=== PATIENT | female | born 1980 | race Caucasian/White ===

== ENCOUNTER → 2016-06-27 | Outpatient (CLI) | payer BC ==
[2016-06-27 20:28] LABS: THYROID STIMULATING HORMONE 2.19 uIU/mL (0.47-4.68)
[2016-06-29 11:06] LABS: LUTEINIZING HORMONE 1.2 mIU/mL (.); PROGESTERONE <0.1 ng/mL (.)
== END ==
LOC: LAB 14:32
PROVIDERS: ATTEND Nurse Practitioner
DX: N95.1 Menopausal and female climacteric states (principal)
CPT/HCPCS: 36415; 82672; 83001; 83002; 84144; 84439; 84443

== ENCOUNTER → 2017-05-31 | Outpatient (CLI) | payer BC ==
[2017-05-31 19:26] LABS: ABSOLUTE EOSINOPHILS # (AUTO) 0.1 10^3/uL (0.0-0.6); ABSOLUTE LYMPHOCYTES (AUTO) 2.6 10^3/uL (0.5-4.7); ABSOLUTE MONOCYTES (AUTO) 0.9 10^3/uL (0.1-1.4); ABSOLUTE NEUT (AUTO) 4.3 10^3/uL (1.7-8.2); BASOPHILS % (AUTO) 0.3 % (0-2); EOSINOPHILS % (AUTO) 1.8 % (0-6); HEMATOCRIT 39.1 % (36.0-47.0); HEMOGLOBIN 13.2 g/dL (12.0-15.5); LYMPHOCYTES % (AUTO) 32.8 % (13-45); MEAN CORPUSCULAR HGB CONC 33.9 g/dL (32.0-36.0); MEAN CORPUSCULAR VOLUME 88 fl (80-97); MONOCYTES % (AUTO) 11.4 % (3-13); PLATELET COUNT 331 10^3/uL (150-450); RED BLOOD COUNT 4.42 10^6/uL (3.72-5.28); SEGMENTED NEUTROPHILS % (AUTO) 53.7 % (42-78); TOTAL CELLS COUNTED % (AUTO) 100 %; WHITE BLOOD COUNT 8.1 10^3/uL (4.0-10.5)
[2017-05-31 19:50] LABS: ALANINE AMINOTRANSFERASE 32 U/L (9-52); ALBUMIN 4.3 g/dL (3.5-5.0); ALKALINE PHOSPHATASE 47 U/L (38-126); ANION GAP 12 (5-19); ASPARTATE AMINO TRANSFERASE 20 U/L (14-36); BILIRUBIN,DIRECT 0.1 mg/dL (0.0-0.4); BILIRUBIN,TOTAL 0.4 mg/dL (0.2-1.3); BLOOD UREA NITROGEN 10 mg/dL (7-20); CARBON DIOXIDE 23 mmol/L (22-30); CHLORIDE 106 mmol/L (98-107); GLUCOSE 110 mg/dL (75-110); POTASSIUM 4.1 mmol/L (3.6-5.0); SODIUM 141.1 mmol/L (137-145); TOTAL PROTEIN 6.7 g/dL (6.3-8.2); TRIGLYCERIDES 168 mg/dL (<150)
[2017-05-31 20:01] LABS: DIRECT LDL 200 mg/dL (<100)
[2017-05-31 20:04] LABS: VLDL CHOLESTEROL 33.6 mg/dL (10-31)
== END ==
LOC: LAB 19:06
PROVIDERS: ATTEND Psychiatry & Neurology Psychiatry
DX: F41.9 Anxiety disorder, unspecified (principal); F43.10 Post-traumatic stress disorder, unspecified; Z79.899 Other long term (current) drug therapy
CPT/HCPCS: 36415; 80053; 80061; 84443; 85025

== ENCOUNTER 2017-09-27 07:10 | Emergency (ER) | payer BC ==
--- NOTE | 2017-09-27 07:40 | ER Document Report ---
HPI - HPI Patient complains to provider of: Right knee pain Onset: Other - 3 days Onset/Duration: Worse Quality of pain: Achy Pain Level: 4 Context: Patient states she has had right knee pain for the past 3 days. Patient was in the elevator and felt a sudden pop to the popliteal area. Patient complains of increased pain since then. Associated Symptoms: Other - Right knee pain Exacerbated by: Standing, Movement, Walking Relieved by: Denies Similar symptoms previously: Yes Recently seen / treated by doctor: No - ROS ROS below otherwise negative: Yes Systems Reviewed and Negative: Yes All other systems reviewed and negative - CONSTITUTIONAL Constitutional: DENIES: Fever, Chills - EENT EENT: DENIES: Sore Throat, Ear Pain, Eye problems - RESPIRATORY Respiratory: DENIES: Trouble Breathing, Coughing - GASTROINTESTINAL Gastrointestinal: DENIES: Abdominal Pain, Black / Bloody Stools - URINARY Urinary: DENIES: Dysuria, Urgency, Frequency - REPRODUCTIVE Reproductive: DENIES: : - MUSCULOSKELETAL Musculoskeletal: REPORTS: Extremity pain - right knee. DENIES: Swelling - DERM Skin Color: Normal Skin Problems: None Past Medical History - General Information source: Patient - Social History Smoking Status: Never Smoker Chew tobacco use (# tins/day): No Frequency of alcohol use: None Drug Abuse: None Occupation: Hospital Family History: Reviewed & Not Pertinent Patient has suicidal ideation: No Patient has homicidal ideation: No Pulmonary Medical History: Denies: Hx Asthma Neurological Medical History: Denies: Hx Migraine Renal/ Medical History: Denies: Hx Peritoneal Dialysis Psychiatric Medical History: Reports: Hx Anxiety, Hx Depression Past Surgical History: Reports: Hx Cholecystectomy - Immunizations Immunizations up to date: Yes Hx Diphtheria, Pertussis, Tetanus Vaccination: Yes Vertical Provider Document - CONSTITUTIONAL Agree With Documented VS: Yes Exam Limitations: No Limitations General Appearance: WD/WN, No Apparent Distress - INFECTION CONTROL TRAVEL OUTSIDE OF THE [place] IN LAST 30 DAYS: No - HEENT HEENT: Atraumatic, Normocephalic - NECK Neck: Normal Inspection - RESPIRATORY Respiratory: No Respiratory Distress - CARDIOVASCULAR Pulses: Normal: Posterior tibial, Dorsalis pedis - MUSCULOSKELETAL/EXTREMETIES Musculoskeletal/Extremeties: MAEW, Tender - Right knee tenderness to popliteal area and medial inferior compartment. No edema, no laxity with varus or valgus maneuvers. Patellar tendon is intact. Normal skin color and temperature overlying joint, No Edema. negative: Eccymosis - NEURO Level of Consciousness: Awake, Alert, Appropriate Motor/Sensory: No Motor Deficit - DERM Integumentary: Warm, Dry, No Rash Course - Vital Signs Vital signs: Temp Pulse Resp BP Pulse Ox 98.7 F 84 18 152/93 H 99 09/27/17 07:20 09/27/17 07:20 09/27/17 07:20 09/27/17 07:20 09/27/17 07:20 - Diagnostic Test Radiology reviewed: Pending, Image reviewed Procedures - Immobilization Right Knee Pre-Proc Neuro Vasc Exam: Normal Immobilizer type: Knee immobilizer Performed by: PCT Post-Proc Neuro Vasc Exam: Normal Alignment checked and good: Yes Discharge - Discharge Clinical Impression: Knee sprain Qualifiers: Encounter type: initial encounter Involved ligament of knee: unspecified ligament Laterality: right Qualified Code(s): S83.91XA - Sprain of unspecified site of right knee, initial encounter Condition: Stable Disposition: HOME, SELF-CARE Instructions: Use of Crutches ([facility]), Ice & Elevation ([facility]), Suspected Internal Knee Injury ([facility]), Knee Immobilizing Splint ([facility]), Sprained Knee ([facility]) Additional Instructions: Return immediately for any new or worsening symptoms Followup with your primary care provider, call tomorrow to make a followup appointment Follow-up with orthopedics for further evaluation, call Friday for an appointment Prescriptions: Naproxen [Naprosyn 250 Nmg Tablet] 1 tab PO BID #14 tablet Forms: Return to Work Referrals: PHILLY QUINTANILLA MD [NO LOCAL MD] - Follow up as needed [facility] ([facility]) [Provider Group] - 09/29/17
--- NOTE | 2017-09-27 08:11 | RADIOLOGY REPORT (SQ) ---
EXAM DESCRIPTION: KNEE RIGHT 4 VIEWS COMPLETED DATE/TIME: 09/27/2017 7:50 am REASON FOR STUDY: r knee pain, felt pop to popliteal area COMPARISON: None. NUMBER OF VIEWS: Four views. TECHNIQUE: AP, lateral, and both oblique radiographic images acquired of the right knee. LIMITATIONS: None. FINDINGS: MINERALIZATION: Normal. BONES: No acute fracture or dislocation. No worrisome bone lesions. JOINT: No effusion. SOFT TISSUES: No soft tissue swelling. No radio-opaque foreign body. OTHER: No other significant finding. IMPRESSION: NEGATIVE STUDY OF THE RIGHT KNEE. NO RADIOGRAPHIC EVIDENCE OF ACUTE INJURY. TECHNICAL DOCUMENTATION: JOB ID: [id number] [employer]- All Rights Reserved Reading location - IP/workstation name: [email or web address]
[2017-09-27 08:35] VITALS: BP 159/88
== END 2017-09-27 08:30 | disposition home or self-care (01) ==
LOC: ER 07:10
DX: S83.91XA Sprain of unspecified site of right knee, initial encounter (principal); M25.561 Pain in right knee; X58.XXXA Exposure to other specified factors, initial encounter
CPT/HCPCS: 99283; 73564; L1830

== ENCOUNTER → 2017-10-02 | Outpatient (CLI) | payer BC ==
--- NOTE | 2017-10-03 09:39 | RADIOLOGY REPORT (SQ) ---
EXAM DESCRIPTION: MRI RT LOWER JOINT WITHOUT COMPLETED DATE/TIME: 10/02/2017 10:13 pm REASON FOR STUDY: M25.561 PAIN IN RIGHT KNEE M25.561 PAIN IN RIGHT KNEE COMPARISON: None. TECHNIQUE: Rightknee images acquired and stored on PACS. Multiplanar images include fat sensitive s equences as T1, water sensitive sequences as FST2 or STIR, cartilage sensitive sequences as FSPD, and gradient echo sequences. LIMITATIONS: None. FINDINGS: JOINT AND BURSAE: No effusion. BONE CORTEX AND MARROW: No alteration of signal to suggest marrow replacement. No worrisome bone lesi ons. No occult fracture. ACL: Intact. No degeneration or ganglion cyst. PCL: Intact. MCL: Intact. No periligamentous edema or fluid. LCL: Intact. No periligamentous edema or fluid. MEDIAL MENISCUS: Small midbody medial meniscus undersurface tear without parameniscal cyst. This is best shown on coronal images 16-18, and sagittal image 20. LATERAL MENISCUS: No tears. No abnormal signal. MEDIAL COMPARTMENT: Cartilage preserved. No bone bruises or reactive marrow edema. No osteophytes. LATERAL COMPARTMENT: Cartilage preserved. No bone bruises or reactive marrow edema. No osteophytes. PATELLA: Moderate midline chondromalacia. No subchondral cysts. Medial and lateral retinacula intact. EXTENSOR MECHANISM: Intact. Quadriceps and patella tendons normal. SOFT TISSUES: Adjacent muscles and subcutaneous tissues normal. Normal flow void in popliteal artery and vein. OTHER: No other significant finding. IMPRESSION: Small undersurface mid body medial meniscal tear. Mild midline patellar chondromalacia TECHNICAL DOCUMENTATION: JOB ID: [id number] [employer]- All Rights Reserved Reading location - IP/workstation name: [email or web address]
== END ==
LOC: RAD 20:10
PROVIDERS: ATTEND Student in an Organized Health Care Education/Training Program
DX: M25.561 Pain in right knee (principal); M22.41 Chondromalacia patellae, right knee; S83.241A Other tear of medial meniscus, current injury, right knee, initial encounter; X58.XXXA Exposure to other specified factors, initial encounter

== ENCOUNTER 2018-04-06 00:13 | Emergency (ER) | payer BC ==
[2018-04-06] MEDS ORDERED: METOCLOPRAMIDE HCL INJ/PF 10 MG/2 ML SDV IV ONE (00:49)
--- NOTE | 2018-04-06 00:54 | ER Document Report ---
ED General - General Chief Complaint: Eye Problem Stated Complaint: VISION PROBLEMS Time Seen by Provider: 04/06/18 00:42 Notes: Patient presents complaining of relatively abrupt onset of feeling like her visual field is "bright". She describes this as being like looking at the sun or like when a light has been shown on something but is not going away. She denies any visual field cut, loss of vision, pain to either eye, and states that the visual change does not resolve with covering of one eye. She denies any nausea, vomiting or headache. No history of similar symptoms in the past. Some change whether or not she is wearing her glasses. No trauma to the eye. She has never had any like this in the past although does report a history of headaches and has had aura in the past. She has not contacted her primary care physician regarding today's concerns. TRAVEL OUTSIDE OF THE [place] IN LAST 30 DAYS: No - Related Data Allergies/Adverse Reactions: No Known Allergies Allergy (Verified 09/27/17 07:27) Past Medical History - General Information source: Patient - Social History Smoking Status: Never Smoker Frequency of alcohol use: None Drug Abuse: None Family History: Reviewed & Not Pertinent - Past Medical History Cardiac Medical History: Reports: Hx Hypertension Pulmonary Medical History: Denies: Hx Asthma Neurological Medical History: Denies: Hx Migraine Renal/ Medical History: Denies: Hx Peritoneal Dialysis Psychiatric Medical History: Reports: Hx Anxiety, Hx Depression Past Surgical History: Reports: Hx Cholecystectomy - Immunizations Immunizations up to date: Yes Hx Diphtheria, Pertussis, Tetanus Vaccination: Yes Review of Systems - Review of Systems Notes: Constitutional: Negative for fever. HENT: Negative for sore throat. Eyes: Positive for visual changes. Cardiovascular: Negative for chest pain. Respiratory: Negative for shortness of breath. Gastrointestinal: Negative for abdominal pain, vomiting or diarrhea. Genitourinary: Negative for dysuria. Musculoskeletal: Negative for back pain. Skin: Negative for rash. Neurological: Negative for headaches, weakness or numbness. 10 point ROS negative except as marked above and in HPI. Physical Exam - Vital signs Vitals: Temp Pulse Resp BP Pulse Ox 98.4 F 76 16 146/93 H 99 04/06/18 00:21 04/06/18 00:21 04/06/18 00:21 04/06/18 00:21 04/06/18 00:21 Interpretation: Hypertensive Notes: PHYSICAL EXAMINATION: GENERAL: Well-appearing, well-nourished and in no acute distress. HEAD: Atraumatic, normocephalic. EYES: Pupils equal round and reactive to light, extraocular movements intact, sclera anicteric, conjunctiva are normal. ENT: nares patent, oropharynx clear without exudates. Moist mucous membranes. NECK: Normal range of motion, supple without lymphadenopathy LUNGS: Breath sounds clear to auscultation bilaterally and equal. No wheezes rales or rhonchi. HEART: Regular rate and rhythm without murmurs ABDOMEN: Soft, nontender, normoactive bowel sounds. No guarding, no rebound. No masses appreciated. EXTREMITIES: Normal range of motion, no pitting or edema. No cyanosis. NEUROLOGICAL: Face symmetric. Tongue protrudes midline. Extraocular motions intact. Pupils are 2 mm and equally reactive. Normal speech, normal gait. 5 out of 5 strength in both the distal and proximal upper and lower extremities bilaterally. Sensation is grossly intact throughout. Finger to nose testing normal. Pronator drift normal. PSYCH: Normal mood, normal affect. SKIN: Warm, Dry, normal turgor, no rashes or lesions noted. Course - Re-evaluation Re-evalutation: 04/06/18 00:52 Patient presents with a very difficult to assess complaint of brightness in her field of vision. This is inconsistent with multiple pathologies that I would think of including an acute stroke which one would expect to give a field cut which the patient does not have. Optic nerve injury would likewise cause monocular loss of vision. The patient has not had any trauma to the eye. No pain in the eye to suggest an acute glaucoma. Retinal detachment or vitreous hemorrhage does not make sense as the symptoms are bilateral. Likewise a retinal artery occlusion would not fit with this presentation. This could be the early presentation of aura and I will attempt to treat empirically with a dose of metoclopramide to see if this resolves the patient's symptoms. 04/06/18 01:53 Patient states that the visual changes have resolved after receiving metoclopramide. I have advised her to follow-up with a local flight control specialist in the morning. At this time will discharge with return precautions and follow-up recommendations. Verbal discharge instructions given a the bedside and opportunity for questions given. Medication warnings reviewed. Patient is in agreement with this plan and has verbalized understanding of return precautions and the need for primary care follow-up in the next 24-72 hours. - Vital Signs Vital signs: Temp Pulse Resp BP Pulse Ox 98.4 F 76 16 146/93 H 99 04/06/18 00:21 04/06/18 00:21 04/06/18 00:21 04/06/18 00:21 04/06/18 00:21 Discharge - Discharge Clinical Impression: Vision abnormalities Condition: Good Disposition: HOME, SELF-CARE Additional Instructions: The exact cause of your visual changes uncertain but does not appear to be from immediately life or vision threatening cause tonight. Please follow-up with Dr. Velez in the morning if you have any recurrence or ongoing nature of your symptoms. Return if you develop fever, headache, neck pain, confusion, weakness, numbness or any other symptoms. Referrals: DORIAN SAAVEDRA DO [Primary Care Provider] - Follow up as needed CARLOS ALBERTO VELEZ DO [ACTIVE STAFF] - Follow up tomorrow
[2018-04-06 02:09] VITALS: BP 143/78
== END 2018-04-06 02:09 | disposition home or self-care (01) ==
LOC: ER 00:13
DX: H53.9 Unspecified visual disturbance (principal); I10 Essential (primary) hypertension; Z90.49 Acquired absence of other specified parts of digestive tract
CPT/HCPCS: 99283; 96374; J2765

== ENCOUNTER → 2018-07-22 | Outpatient (CLI) | payer BC ==
[2018-07-22 15:45] LABS: HEMOGLOBIN 13.6 g/dL (12.0-15.5); MEAN CORPUSCULAR HEMOGLOBIN 30.8 pg (27.0-33.4); MEAN CORPUSCULAR HGB CONC 34.7 g/dL (32.0-36.0); MEAN CORPUSCULAR VOLUME 89 fl (80-97); PLATELET COUNT 321 10^3/uL (150-450); RED CELL DISTRIBUTION WIDTH 12.9 % (11.5-14.0)
[2018-07-22 16:03] LABS: ALANINE AMINOTRANSFERASE 29 U/L (9-52); ALBUMIN 4.2 g/dL (3.5-5.0); ALKALINE PHOSPHATASE 50 U/L (38-126); ANION GAP 10 (5-19); ASPARTATE AMINO TRANSFERASE 23 U/L (14-36); BILIRUBIN,DIRECT 0.3 mg/dL (0.0-0.4); BILIRUBIN,TOTAL 0.6 mg/dL (0.2-1.3); BLOOD UREA NITROGEN 14 mg/dL (7-20); CALCIUM 10.1 mg/dL (8.4-10.2); CARBON DIOXIDE 24 mmol/L (22-30); CHLORIDE 105 mmol/L (98-107); GLUCOSE 106 mg/dL (75-110); POTASSIUM 4.7 mmol/L (3.6-5.0); SODIUM 138.7 mmol/L (137-145); TOTAL PROTEIN 7.4 g/dL (6.3-8.2)
[2018-07-22 16:20] LABS: FREE T4 (FREE THYROXINE) 1.07 ng/dL (0.78-2.19)
[2018-07-22 16:34] LABS: THYROID STIMULATING HORMONE 1.66 uIU/mL (0.47-4.68)
[2018-07-24 07:40] LABS: THYROID PEROXIDASE (TPO) AB 12 IU/mL (0-34)
[2018-07-24 08:27] LABS: THYROGLOBULIN AB SO <1.0 IU/mL (0.0-0.9)
== END ==
LOC: LAB 15:26
PROVIDERS: ATTEND Physician Assistant
DX: F41.1 Generalized anxiety disorder (principal)
CPT/HCPCS: 36415; 80053; 84439; 84443; 85027; 86376

== ENCOUNTER → 2018-07-30 | Outpatient (CLI) | payer BC ==
--- NOTE | 2018-07-30 09:32 | EKG REPORT ---
SEVERITY:- NORMAL ECG - SINUS RHYTHM : Confirmed by: Tariq Rodriguez 30-Jul-2018 09:31:35
[2018-07-30 10:43] LABS: ALANINE AMINOTRANSFERASE 24 U/L (9-52); ALBUMIN 3.9 g/dL (3.5-5.0); ALKALINE PHOSPHATASE 54 U/L (38-126); ANION GAP 11 (5-19); ASPARTATE AMINO TRANSFERASE 18 U/L (14-36); BILIRUBIN,DIRECT 0.3 mg/dL (0.0-0.4); BILIRUBIN,TOTAL 0.7 mg/dL (0.2-1.3); BLOOD UREA NITROGEN 12 mg/dL (7-20); CALCIUM 9.8 mg/dL (8.4-10.2); CARBON DIOXIDE 24 mmol/L (22-30); CHLORIDE 105 mmol/L (98-107); GLUCOSE 92 mg/dL (75-110); POTASSIUM 4.1 mmol/L (3.6-5.0); SODIUM 140.1 mmol/L (137-145)
[2018-07-30 11:01] LABS: FREE T4 (FREE THYROXINE) 1.02 ng/dL (0.78-2.19)
[2018-07-30 11:14] LABS: THYROID STIMULATING HORMONE 2.02 uIU/mL (0.47-4.68)
[2018-08-01 08:51] LABS: ADRENOCORTICOTROPIC HORMONE 29.4 pg/mL (7.2-63.3)
[2018-08-02 12:58] LABS: RENIN ACTIVITY 1.152 ng/mL/hr (0.167-5.38)
== END ==
LOC: OD 08:28
PROVIDERS: ATTEND Nurse Practitioner Family
DX: F41.9 Anxiety disorder, unspecified (principal)
CPT/HCPCS: 36415; 80053; 82024; 82088; 82533; 83525; 84146; 84244; 84439; 84443; 93005; 93010

== ENCOUNTER 2018-11-09 09:19 | Emergency (ER) | payer BC ==
--- NOTE | 2018-11-09 10:00 | ER Document Report ---
ED Medical Screen (RME) - General Chief Complaint: Anxiety Stated Complaint: ANXIETY Time Seen by Provider: 11/09/18 09:59 Primary Care Provider: SHARMAINE MONTANO CRNP [Primary Care Provider] - Follow up as needed Notes: HPI: 38-year-old female with a history of anxiety and panic attacks that usually occur a couple times a week currently on Ativan as needed, here today for worsening, frequent, and intractable anxiety/panic attack today. She works as a manager it security in the lab and states after taking Ativan at 8 AM this morning she got no relief of her symptoms so she came in for evaluation. She states usually the Ativan does work. she still has it at home. She states she was recently put on diltiazem for hypertension 6 days ago and feels like her symptoms have worsened since starting that medication and coming off of her propranolol. She states she was on BuSpar, amitriptyline, and propanolol up until June and that was controlling her anxiety and panic attacks however all of a sudden they stopped working and her doctor took her off them. She denies any known trigger or cause of her sx or any changes in her life or diet that could have caused this. She states she feels chest pain, tightness, nausea and shortness of breath when this happens. no syncope. She states usually it lasts about 30 minutes and she is able to sit down and calm herself down it goes away however it has not done so today so she came in. She denies excessive caffeine use. She is on a chronic control pills and has not had a period in 4 years as she states they are trying to suppress her menses because her sx are way worse when she is on her menses. She denies any personal or family history of cardiac disease at young age other than her sister has Chong Parkinson's white syndrome however she has been told she does not have it herself. She has never had a stress test. She does not take any blood thinners. She denies any intoxication. She denies any SI/HI, or visual/auditory hallucinations. She does feel safe at home. No other changes in medication or diet or known cause of her symptoms. PCP is Cal Pollock. She has never been admitted for inpatient psych. no fall or trauma. Denies any other complaints at this time. ROS neg to include 10 systems, unless mentioned in the hpi. PE:>>>> PHYSICAL_EXAM: GENERAL_APPEARANCE: well_nourished, alert, cooperative, no_acute_distress, mild obvious_discomfort. pleasant, young female, tearful, at bedside, interaction is appropriate, speaking in full sentences, in no sign of pain or resp distress, VITALS: reviewed, see vital signs table. HEAD: no_swelling\tenderness on the head. normocephalic. atraumatic. no savage signs. no raccoons eyes. EYES: PERRL, EOMI, conjunctiva_clear. NOSE: no_nasal_discharge. MOUTH: (-)decreased moisture. THROAT: no_tonsilar_inflammation, no_airway_obstruction. no_lymphadenopathy NECK: supple, no_neck_tenderness, full rom. full strength. no meningeal signs. BACK: no_back_tenderness. CHEST_WALL: no_chest_tenderness. no overlying skin changes LUNGS: no_wheezing, ctab (-)accessory muscle use, good air exchange bilateral. HEART: normal_rate, normal_rhythm, ABDOMEN: normal_BS, soft, no_abd_tenderness, (-)guarding, (-)rebound, no distension or peritoneal signs. no cva ttp EXTREMITIES: strength 5/5 in all_extremities, good pulses in all_extremities, no_swelling\tenderness in the extremities, no_edema. full rom. normal gait. good pulses. brisk cap refill. good hand gut dropper. NEURO: motor and sensation intact, SKIN: warm, dry, good_color, no_rash. MENTAL_STATUS: speech_clear, oriented_X_3, normal_affect, responds_appropriately to questions. triage ekg shows sinus tach 112bpm, some t wave changes, no stemi, reviewed by MDM: I have ordered labs and initial work-up and patient will be transferred to the main ER for further work-up. I have greeted and performed a rapid initial assessment of this patient. A comprehensive ED assessment and evaluation of the patient, analysis of test results and completion of medical decision making process will be conducted by an additional ED providers. Documentation achieved through voice recording which my lead to some occasional accidental typographical errors. Extensive efforts have been made to proof read documentation to make sure these are the least as possible Temp Pulse BP Pulse Ox 11/09/18 09:32 98.2 F 116 H 154/115 H 97 Category Date Time Status EKG Documentation STAT Care 11/09/18 09:27 Completed Vital Signs (ED) Q4H Care 11/09/18 10:22 Ordered Consult Documentation [RC] TRINITY Cons 11/09/18 10:29 Ordered Physician [CONS] Stat Cons 11/09/18 10:22 Ordered CHEST 2 VIEWS [RAD] Stat Exams 11/09/18 10:30 Ordered ACETAMINOPHEN [CHEM] Stat Lab 11/09/18 10:22 Ordered ALCOHOL [CHEM] Stat Lab 11/09/18 10:22 Ordered CBC WITH DIFF [HEME] Stat Lab 11/09/18 10:22 Ordered COMPREHENSIVE METABOLIC PANEL [CHEM] Stat Lab 11/09/18 10:22 Ordered CREATINE KINASE MB [CHEM] Stat Lab 11/09/18 10:31 Ordered CREATINE KINASE [CHEM] Stat Lab 11/09/18 10:31 Ordered D-DIMER [COAG] Stat Lab 11/09/18 10:30 Ordered HCG-QUAL, SERUM [CHEM] Stat Lab 11/09/18 10:22 Ordered LIPASE [CHEM] Stat Lab 11/09/18 10:30 Ordered SALICYLATE [CHEM] Stat Lab 11/09/18 10:22 Ordered T4 [FREE T4 (FREE THYROXINE)] [CHEM] Stat Lab 11/09/18 10:29 Ordered THYROID STIMULATING HORMONE [CHEM] Stat Lab 11/09/18 10:29 Ordered TROPONIN I [CHEM] Stat Lab 11/09/18 10:30 Ordered UA [URINALYSIS] [URIN] Stat Lab 11/09/18 10:30 Uncollected URINE DRUG SCREEN [CHEM] Stat Lab 11/09/18 10:22 Uncollected EKG ER ONLY [ER] Stat Oth 11/09/18 Active TRAVEL OUTSIDE OF THE [place] IN LAST 30 DAYS: No - Related Data Allergies/Adverse Reactions: No Known Allergies Allergy (Verified 09/27/17 07:27) Past Medical History - Social History Chew tobacco use (# tins/day): No Frequency of alcohol use: None Drug Abuse: None - Past Medical History Cardiac Medical History: Reports: Hx Hypertension Pulmonary Medical History: Denies: Hx Asthma Neurological Medical History: Denies: Hx Migraine Renal/ Medical History: Denies: Hx Peritoneal Dialysis Psychiatric Medical History: Reports: Hx Anxiety, Hx Depression Past Surgical History: Reports: Hx Cholecystectomy - Immunizations Immunizations up to date: Yes Hx Diphtheria, Pertussis, Tetanus Vaccination: Yes Physical Exam - Vital signs Vitals: Temp Pulse BP Pulse Ox 98.2 F 116 H 154/115 H 97 11/09/18 09:32 11/09/18 09:32 11/09/18 09:32 11/09/18 09:32 Course - Vital Signs Vital signs: Temp Pulse Resp BP Pulse Ox 98.2 F 116 H 154/115 H 97 11/09/18 09:32 11/09/18 09:32 11/09/18 09:32 11/09/18 09:32 Doctor's Discharge - Discharge Referrals: SHARMAINE MONTANO CRNP [Primary Care Provider] - Follow up as needed
[2018-11-09 11:04] LABS: ABSOLUTE BASOPHILS # (AUTO) 0.1 10^3/uL (0.0-0.2); ABSOLUTE LYMPHOCYTES (AUTO) 2.4 10^3/uL (0.5-4.7); ABSOLUTE MONOCYTES (AUTO) 0.7 10^3/uL (0.1-1.4); ABSOLUTE NEUT (AUTO) 7.5 10^3/uL (1.7-8.2); BASOPHILS % (AUTO) 0.7 % (0-2); EOSINOPHILS % (AUTO) 0.4 % (0-6); LYMPHOCYTES % (AUTO) 22.3 % (13-45); MEAN CORPUSCULAR HEMOGLOBIN 29.9 pg (27.0-33.4); MEAN CORPUSCULAR HGB CONC 34.2 g/dL (32.0-36.0); MEAN CORPUSCULAR VOLUME 87 fl (80-97); MONOCYTES % (AUTO) 6.5 % (3-13); PLATELET COUNT 339 10^3/uL (150-450); RED BLOOD COUNT 4.69 10^6/uL (3.72-5.28); RED CELL DISTRIBUTION WIDTH 12.6 % (11.5-14.0); SEGMENTED NEUTROPHILS % (AUTO) 70.1 % (42-78); TOTAL CELLS COUNTED % (AUTO) 100 %; WHITE BLOOD COUNT 10.7 10^3/uL (4.0-10.5)
[2018-11-09 11:06] LABS: APPEARANCE,URINE SLIGHTLY-CLOUDY; BILIRUBIN,URINE NEGATIVE (NEGATIVE); COLOR,URINE YELLOW; GLUCOSE, URINE NEGATIVE (NEGATIVE); KETONES,URINE NEGATIVE (NEGATIVE); LEUKOCYTE ESTERASE,URINE LARGE (NEGATIVE); NITRITE,URINE NEGATIVE (NEGATIVE); PROTEIN,URINE NEGATIVE (NEGATIVE); URINE SPECIFIC GRAVITY 1.023; UROBILINOGEN,URINE NEGATIVE mg/dL (<2.0)
[2018-11-09 11:24] LABS: URINE AMPHETAMINES SCREEN NEGATIVE; URINE BARBITURATES SCREEN NEGATIVE; URINE BENZODIAZEPINES SCREEN NEGATIVE; URINE COCAINE SCREEN NEGATIVE; URINE MARIJUANA (THC) SCREEN NEGATIVE; URINE METHADONE SCREEN NEGATIVE; URINE PHENCYCLIDINE SCREEN NEGATIVE
[2018-11-09 11:24] LABS: ALBUMIN 4.7 g/dL (3.5-5.0); ALKALINE PHOSPHATASE 60 U/L (38-126); ANION GAP 17 (5-19); ASPARTATE AMINO TRANSFERASE 25 U/L (14-36); BILIRUBIN,DIRECT 0.2 mg/dL (0.0-0.4); BILIRUBIN,TOTAL 0.5 mg/dL (0.2-1.3); BLOOD UREA NITROGEN 15 mg/dL (7-20); CALCIUM 9.9 mg/dL (8.4-10.2); CARBON DIOXIDE 19 mmol/L (22-30); CHLORIDE 104 mmol/L (98-107); CREATINE KINASE 110 U/L (30-135); GLUCOSE 98 mg/dL (75-110); POTASSIUM 4.3 mmol/L (3.6-5.0); TOTAL PROTEIN 7.8 g/dL (6.3-8.2)
[2018-11-09 11:25] LABS: ACETAMINOPHEN < 10 ug/mL (10-30); ALCOHOL < 10 mg/dL (NONE DETECTED); SALICYLATE < 1.0 mg/dL (2.0-20.0)
--- NOTE | 2018-11-09 11:26 | RADIOLOGY REPORT (SQ) ---
EXAM DESCRIPTION: CHEST 2 VIEWS COMPLETED DATE/TIME: 11/09/2018 11:07 am REASON FOR STUDY: cp COMPARISON: 06/27/2010. EXAM PARAMETERS: NUMBER OF VIEWS: two views TECHNIQUE: Digital Frontal and Lateral radiographic views of the chest acquired. RADIATION DOSE: NA LIMITATIONS: none FINDINGS: LUNGS AND PLEURA: No opacities, masses or pneumothorax. No pleural effusion. MEDIASTINUM AND HILAR STRUCTURES: No masses or contour abnormalities. HEART AND VASCULAR STRUCTURES: Heart normal size. No evidence for failure. BONES: No acute findings. HARDWARE: None in the chest. OTHER: No other significant finding. IMPRESSION: NO ACUTE RADIOGRAPHIC FINDING IN THE CHEST. TECHNICAL DOCUMENTATION: JOB ID: [id number] [employer]- All Rights Reserved Reading location - IP/workstation name: [email or web address]
[2018-11-09 11:41] LABS: CREATINE KINASE MB 0.31 ng/mL (<4.55)
[2018-11-09 11:44] LABS: TROPONIN I < 0.012 ng/mL
[2018-11-09 11:51] LABS: FREE T4 (FREE THYROXINE) 0.78 ng/dL (0.78-2.19)
[2018-11-09 12:05] LABS: THYROID STIMULATING HORMONE 5.01 uIU/mL (0.47-4.68)
--- NOTE | 2018-11-09 12:29 | ER Document Report ---
ED General - General Chief Complaint: Anxiety Stated Complaint: ANXIETY Time Seen by Provider: 11/09/18 09:59 Primary Care Provider: SHARMAINE MONTANO CRNP [NO LOCAL MD] - Follow up as needed Notes: Patient is here because she is having chest pains. Patient thinks it may be her anxiety which she is suffered with since childhood in the of her sister. Patient describes her pain is cramping in the anterior chest. She saw her primary care provider in [place] Friday and was put on a new blood pressure medicine, diltiazem. She is already been taking Ativan 1 mg. She has been nauseated but not vomiting. She has had no significant difficulty breathing or shortness of breath. No recent illness or fevers. Patient is on control pills. She has a history of UTIs for which she has often not had any symptoms. Patient has a history of cholecystectomy. Hypertension and high cholesterol on no treatment. Patient has a long history of anxiety and she is currently taking BuSpar 7-1/2 mg twice a day and amitriptyline to sleep, and the previously mentioned diltiazem and Ativan. TRAVEL OUTSIDE OF THE [place] IN LAST 30 DAYS: No - Related Data Allergies/Adverse Reactions: No Known Allergies Allergy (Verified 09/27/17 07:27) Past Medical History - Social History Smoking Status: Never Smoker Chew tobacco use (# tins/day): No Frequency of alcohol use: None Drug Abuse: None Family History: Reviewed & Not Pertinent Patient has suicidal ideation: No Patient has homicidal ideation: No - Past Medical History Cardiac Medical History: Reports: Hx Hypertension Endocrine Medical History: Reports: Hx Diabetes Mellitus Type 2 Psychiatric Medical History: Reports: Hx Anxiety, Hx Depression Past Surgical History: Reports: Hx Cholecystectomy - Immunizations Immunizations up to date: Yes Hx Diphtheria, Pertussis, Tetanus Vaccination: Yes Review of Systems - Review of Systems Notes: REVIEW OF SYSTEMS: CONSTITUTIONAL : Denies fever. EENT: Denies eye, ear, nose or mouth or throat pain or other symptoms. CARDIOVASCULAR: HPI. RESPIRATORY: Denies cough, chest congestion, or shortness of breath. GASTROINTESTINAL: Denies abdominal pain or vomiting, or diarrhea. Has been nauseated. GENITOURINARY: Denies difficulty or painful urinating, urinary frequency, blood in urine. MUSCULOSKELETAL: Denies back or neck pain. Denies joint pain or swelling. SKIN: Denies rash or skin lesions. NEUROLOGICAL: Denies LOC or altered mental status. Denies headache. Denies sensory loss or motor deficits. ALL OTHER SYSTEMS REVIEWED AND NEGATIVE. Physical Exam - Vital signs Vitals: Temp Pulse BP Pulse Ox 98.2 F 116 H 154/115 H 97 11/09/18 09:32 11/09/18 09:32 11/09/18 09:32 11/09/18 09:32 Interpretation: Hypertensive, Tachycardic Notes: PHYSICAL EXAMINATION: GENERAL: Well-appearing, very anxious and near tearful at times. Tachycardic and hypertensive at triage. HEAD: Atraumatic, normocephalic. EYES: Pupils equal round and reactive to light, extraocular movements intact. ENT: oropharynx clear without exudates. Moist mucous membranes. NECK: Normal range of motion, supple. LUNGS: Breath sounds clear and equal bilaterally. HEART: Regular rate and rhythm without murmurs. ABDOMEN: Soft, nontender. No guarding or rebound. No masses. BACK: No tenderness throughout entire back. EXTREMITIES: Normal range of motion without pain. Negative Homans bilaterally. NEUROLOGICAL: Normal speech, normal gait. Normal sensory, motor, and reflex exams. Awake, alert, and oriented x3. Cranial nerves normal. PSYCH: Normal mood, normal affect. SKIN: Warm, dry, no rashes. Course - Re-evaluation Re-evalutation: 11/09/18 19:41 All work-up including a d-dimer are normal or negative except for the patient having what looks like a UTI. Of culture her urine and put her on sulfa. - Vital Signs Vital signs: Temp Pulse Resp BP Pulse Ox 98.6 F 84 16 142/81 H 100 11/09/18 12:42 11/09/18 12:42 11/09/18 12:42 11/09/18 12:42 11/09/18 12:42 - Laboratory Result Diagrams: 11/09/18 10:50 11/09/18 10:50 Laboratory results interpreted by me: 11/09/18 11/09/18 11/09/18 10:45 10:50 10:50 WBC 10.7 H Carbon Dioxide 19 L TSH Ur Leukocyte Esterase LARGE H Salicylates < 1.0 L Acetaminophen < 10 L 11/09/18 10:50 WBC Carbon Dioxide TSH 5.01 H Ur Leukocyte Esterase Salicylates Acetaminophen Discharge - Discharge Clinical Impression: Chest pain, non-cardiac, Anxiety, Hypertension, UTI (urinary tract infection) Condition: Stable Disposition: HOME, SELF-CARE Instructions: Anxiety ([facility]) Additional Instructions: CHEST PAIN OF UNCLEAR CAUSE: The exact cause of your chest pain isn't clear. Fortunately, there is no evidence of a dangerous medical condition. Further testing may be required to find the source of the pain. Most often, we find that this pain is coming from the chest wall -- the muscles or rib joints in the chest. But chest pain can come from the lung and lung lining, the esophagus, the heart valves or heart lining, and even the stomach or gallbladder. Rest. Eat lightly until the pain is gone. We may prescribe medicine for pain and inflammation. You should call the physician immediately if the pain radiates to the shoulder, jaw or arms; if you start to run a fever or develop a cough; or if you develop shortness of breath, or other new or alarming symptoms. NORMAL EXAM AND WORKUP: At this time, except for your heart rate on your EKG, your examination and workup show no significant abnormality. No significant abnormal physical f indings were noted. All laboratory, EKG, and imaging (x-ray, CT scans, ultrasound) studies that were ordered show no significant abnormality. Although your examination and all studies that were ordered showed no significant abnormal finding, there are no examinations and no studies that are 100% accurate. There is always the possibility that some abnormality could exist and not be detected with physical examination or within the limits and capabilities of laboratory and other studies. You should return or follow up as you were instructed on your visit today for further evaluation if your symptoms do not resolve. Anxiety The physician feels that some of your health problems are being caused by anxiety. Anxiety affects your health in many ways. Anxiety alone can cause palpitations, sweats, chest pains, abdominal pains, shortness of breath, and headaches. It contributes to ulcer disease, high blood pressure, irritable bowel syndrome, and has been shown to cause flare-ups of many other diseases. Anxiety is not a simple disorder to treat. If the anxiety is due to recent life stresses, you may simply need time to "work through" the changes. If the anxiety is due to an underlying unhappiness with yourself or due to psychiatric disturbance, professional help will be needed. Your physician can refer you for further help if needed. Anti-anxiety medication is occasionally given if the stress is acute or if you are having trouble sleeping. Chronic or frequent use of these medications is not a good idea because the body becomes reliant on it, preventing you from dealing with life's normal stresses. HIGH BLOOD PRESSURE REQUIRING TREATMENT: Your blood pressure is high. This is called "hypertension." Today's reading was (normal is less than 140/90). Your history and exam suggest that this is not a temporary problem. You need treatment of your blood pressure. If left untreated, high blood pressure greatly increases your risk of heart attack and stroke. Please don't ignore this problem. If you have blood pressure medicine but aren't using it regularly, start taking it again. Some simple things you can do to help are: Get some aerobic exercise for at least 20 minutes on a daily basis. (See your doctor before beginning any new exercise program.) Eat a low-fat diet. Lose excess weight. Avoid salty foods and avoid adding salt to any of the foods you eat. Avoid diet pills, decongestants, "energizing" herbs, and other medicines that elevate blood pressure. There are many different medicines that treat blood pressure. If your medication causes unpleasant side effects, call your doctor. There are others you can try. Treating hypertension is a life-long investment in your health. Take the medication you have been prescribed for your high blood pressure. CALCIUM CHANNEL BLOCKERS: A medication of the calcium channel janel type has been prescribed for you. Examples of this type of medicine are Calan, Isoptin, Procardia, and Cardizem. These medicines have a variety of uses, including prevention of angina attacks, treatment of blood pressure, regulation of certain heart rhythm problems, and prevention of migraine headaches. Calcium channel blockers work by interfering with the flow of calcium in cell membranes. This results in dilation of blood vessels, and slowing of electrical conduction in the heart. A slight dizziness (due to a fall in blood pressure) may occur with the first dose, and sometimes even with later doses. This may make you prone to dizziness if you stand up suddenly. Call the doctor if lightheadedness is severe, or if you develop palpitations, shortness of breath, or any other new or alarming symptoms. URINARY TRACT INFECTION: Your evaluation indicates that you have a urinary tract infection. This is due to germs growing in the bladder. This is a common problem. This infection usually responds quickly to antibiotics. Your antibiotic should be taken exactly as prescribed. Drink plenty of fluids -- three to four quarts a day. Occasionally, a bladder anesthetic will be prescribed to help stop the feeling of urgency until the antibiotic has a chance to clear the infection. This may cause your urine to be dark orange. Certain urine infections require a culture. If the doctor obtained a culture, the results will be back in two days. You should call to see if a holden nge in treatment is needed. A repeat urinalysis after you finish treatment is often recommended. The physician will let you know if further testing is required. Call the doctor if you develop fever, chills, flank pain, inability to urinate, or blood in the urine. ANTIBIOTIC THERAPY: You have been given an antibiotic prescription. It's important that you take all the medication, unless instructed otherwise by your physician. Failure to complete the entire course can result in relapse of your condition. Common side effects of antibiotics include nausea, intestinal cramping, or diarrhea. Women may develop vaginal yeast infections, and babies can get yeast (thrush) in the mouth following the use of antibiotics. Contact your physician if you develop significant side effects from this medication. Allergy to this antibiotic can result in hives, wheezing, faintness, or itching. If symptoms of allergy occur, stop the medication and call the doctor. TRIMETHOPRIM-SULFA: You have been given a prescription for trimethoprim-sulfa (TMS, Septra, Bactrim). This is a combination antibiotic of the sulfa class, often used for urinary tract infections, middle ear infections, bronchitis, shigella intestinal infection, and Pneumocystis pneumonia. TMS is usually well-tolerated. Occasional side effects include nausea and decreased appetite. Septra is not recommended for infants less than two months of age. Do not take this medication if you have experienced severe side effects or allergy to sulfa medicine. You should stop this medicine at once and contact your physician if you develop any rash, joint pain, shortness of breath, bruising, or jaundice (yellow color in the skin), or if you develop any other new or unusual symptoms. FOLLOW-UP CARE: If you have been referred to a physician for follow-up care, call the physicians office for an appointment as you were instructed or within the next two days. If you experience worsening or a significant change in your symptoms, notify the physician immediately or return to the Emergency Department at any time for re-evaluation. Follow-up with your primary care provider regarding management of your blood pressure and anxiety. Prescriptions: Sulfamethoxazole/Trimethoprim [Bactrim Ds Tablet] 1 each PO BID #10 tablet Forms: Return to Work Referrals: SHARMAINE MONTANO CRNP [NO LOCAL MD] - Follow up as needed
[2018-11-09 12:44] VITALS: BP 142/81
--- NOTE | 2018-11-10 09:46 | EKG REPORT ---
SEVERITY:- BORDERLINE ECG - SINUS TACHYCARDIA BORDERLINE T ABNORMALITIES, INFERIOR LEADS : Confirmed by: Tariq Rodriguez 10-Nov-2018 09:45:33
== END 2018-11-09 13:04 | disposition home or self-care (01) ==
LOC: ER 09:19
DX: F41.9 Anxiety disorder, unspecified (principal); R07.89 Other chest pain; N39.0 Urinary tract infection, site not specified; I10 Essential (primary) hypertension; Z90.49 Acquired absence of other specified parts of digestive tract
CPT/HCPCS: 36415; 71046; 80053; 80307; 81001; 82550; 82553; 83690; 84439; 84443; 84484; 84703; 85025; 85379; 87086; 93005; 93010; 99284

== ENCOUNTER → 2018-11-18 | Outpatient (CLI) | payer BC ==
[2018-11-18 09:42] LABS: ABSOLUTE EOSINOPHILS # (AUTO) 0.1 10^3/uL (0.0-0.6); ABSOLUTE LYMPHOCYTES (AUTO) 2.4 10^3/uL (0.5-4.7); ABSOLUTE MONOCYTES (AUTO) 0.6 10^3/uL (0.1-1.4); ABSOLUTE NEUT (AUTO) 4.2 10^3/uL (1.7-8.2); BASOPHILS % (AUTO) 0.4 % (0-2); EOSINOPHILS % (AUTO) 1.4 % (0-6); HEMATOCRIT 39.8 % (36.0-47.0); HEMOGLOBIN 13.5 g/dL (12.0-15.5); LYMPHOCYTES % (AUTO) 33.2 % (13-45); MEAN CORPUSCULAR HEMOGLOBIN 29.8 pg (27.0-33.4); MEAN CORPUSCULAR VOLUME 88 fl (80-97); MONOCYTES % (AUTO) 8.2 % (3-13); PLATELET COUNT 321 10^3/uL (150-450); RED BLOOD COUNT 4.53 10^6/uL (3.72-5.28); SEGMENTED NEUTROPHILS % (AUTO) 56.8 % (42-78); TOTAL CELLS COUNTED % (AUTO) 100 %; WHITE BLOOD COUNT 7.4 10^3/uL (4.0-10.5)
[2018-11-18 10:01] LABS: ALBUMIN 4.3 g/dL (3.5-5.0); ALKALINE PHOSPHATASE 58 U/L (38-126); ASPARTATE AMINO TRANSFERASE 28 U/L (14-36); BILIRUBIN,DIRECT 0.3 mg/dL (0.0-0.4); BILIRUBIN,TOTAL 0.8 mg/dL (0.2-1.3); CHOLESTEROL 235.88 mg/dL (0-200); TOTAL PROTEIN 7.3 g/dL (6.3-8.2); TRIGLYCERIDES 179 mg/dL (<150)
[2018-11-18 10:12] LABS: DIRECT LDL 195 mg/dL (<100)
[2018-11-18 10:16] LABS: VLDL CHOLESTEROL 35.8 mg/dL (10-31)
[2018-11-18 15:13] LABS: ANION GAP 12 (5-19); BLOOD UREA NITROGEN 10 mg/dL (7-20); CARBON DIOXIDE 24 mmol/L (22-30); CHLORIDE 103 mmol/L (98-107); GLUCOSE 97 mg/dL (75-110); POTASSIUM 4.5 mmol/L (3.6-5.0)
== END ==
LOC: OD 08:49
PROVIDERS: ATTEND Physician Assistant
DX: I10 Essential (primary) hypertension (principal); F41.9 Anxiety disorder, unspecified; F32.9 Major depressive disorder, single episode, unspecified; F41.0 Panic disorder [episodic paroxysmal anxiety]; R00.2 Palpitations; Z13.220 Encounter for screening for lipoid disorders
CPT/HCPCS: 36415; 80053; 80061; 84443; 85025

== ENCOUNTER → 2019-02-16 | Outpatient (CLI) | payer BC ==
[2019-02-16 09:09] LABS: CHOLESTEROL 233.98 mg/dL (0-200); TRIGLYCERIDES 267 mg/dL (<150)
[2019-02-16 09:20] LABS: DIRECT LDL 183 mg/dL (<100)
[2019-02-16 09:28] LABS: VLDL CHOLESTEROL 53.4 mg/dL (10-31)
[2019-02-17 13:13] LABS: T3 UPTAKE (RESIN) 18 % (24-39)
== END ==
LOC: OD 07:37
PROVIDERS: ATTEND Physician Assistant
DX: E03.9 Hypothyroidism, unspecified (principal); F41.9 Anxiety disorder, unspecified; R00.2 Palpitations
CPT/HCPCS: 36415; 80061; 84439; 84443; 84479

== ENCOUNTER → 2019-05-19 | Outpatient (CLI) | payer BC ==
[2019-05-19 16:07] LABS: A TYPE INFLUENZA AG NEGATIVE (NEGATIVE); B INFLUENZA AG NEGATIVE (NEGATIVE)
== END ==
LOC: OD 15:22
PROVIDERS: ATTEND Family Medicine Geriatric Medicine
DX: J06.9 Acute upper respiratory infection, unspecified (principal)
CPT/HCPCS: 87804

== ENCOUNTER → 2019-09-15 | Outpatient (CLI) | payer BC ==
[2019-09-15 14:33] LABS: ABSOLUTE LYMPHOCYTES (AUTO) 2.2 10^3/uL (0.5-4.7); ABSOLUTE MONOCYTES (AUTO) 0.5 10^3/uL (0.1-1.4); ABSOLUTE NEUT (AUTO) 7.5 10^3/uL (1.7-8.2); BASOPHILS % (AUTO) 0.3 % (0-2); EOSINOPHILS % (AUTO) 0.3 % (0-6); HEMATOCRIT 38.1 % (36.0-47.0); HEMOGLOBIN 13.3 g/dL (12.0-15.5); LYMPHOCYTES % (AUTO) 21.6 % (13-45); MEAN CORPUSCULAR HEMOGLOBIN 30.4 pg (27.0-33.4); MEAN CORPUSCULAR HGB CONC 34.8 g/dL (32.0-36.0); MEAN CORPUSCULAR VOLUME 87 fl (80-97); MONOCYTES % (AUTO) 5.3 % (3-13); PLATELET COUNT 321 10^3/uL (150-450); RED BLOOD COUNT 4.36 10^6/uL (3.72-5.28); RED CELL DISTRIBUTION WIDTH 13.1 % (11.5-14.0); SEGMENTED NEUTROPHILS % (AUTO) 72.5 % (42-78); TOTAL CELLS COUNTED % (AUTO) 100 %; WHITE BLOOD COUNT 10.3 10^3/uL (4.0-10.5)
[2019-09-15 14:52] LABS: ALBUMIN 4.2 g/dL (3.5-5.0); ALKALINE PHOSPHATASE 57 U/L (38-126); ANION GAP 11 (5-19); ASPARTATE AMINO TRANSFERASE 24 U/L (14-36); BILIRUBIN,TOTAL 0.4 mg/dL (0.2-1.3); BLOOD UREA NITROGEN 11 mg/dL (7-20); CALCIUM 9.7 mg/dL (8.4-10.2); CARBON DIOXIDE 22 mmol/L (22-30); CHLORIDE 104 mmol/L (98-107); GLUCOSE 122 mg/dL (75-110); POTASSIUM 3.9 mmol/L (3.6-5.0); TOTAL PROTEIN 7.2 g/dL (6.3-8.2)
[2019-09-16 10:44] LABS: T3 UPTAKE (RESIN) 16 % (24-39)
== END ==
LOC: OD 13:20
PROVIDERS: ATTEND Family Medicine Geriatric Medicine
DX: E03.9 Hypothyroidism, unspecified (principal); D64.9 Anemia, unspecified; Z79.899 Other long term (current) drug therapy
CPT/HCPCS: 36415; 80053; 84436; 84443; 84479; 85025

== ENCOUNTER → 2019-10-05 | Outpatient (CLI) | payer BC ==
[2019-10-05 16:01] LABS: FREE T4 (FREE THYROXINE) 1.07 ng/dL (0.78-2.19)
[2019-10-05 16:15] LABS: THYROID STIMULATING HORMONE 1.06 uIU/mL (0.47-4.68)
[2019-10-07 08:38] LABS: THYROID PEROXIDASE (TPO) AB 9 IU/mL (0-34)
[2019-10-07 08:43] LABS: THYROGLOBULIN AB <1.0 IU/mL (0.0-0.9)
== END ==
LOC: OD 14:16
PROVIDERS: ATTEND Nurse Practitioner Primary Care
DX: E03.9 Hypothyroidism, unspecified (principal)
CPT/HCPCS: 36415; 83519; 84439; 84443; 84480; 86376

== ENCOUNTER → 2019-11-30 | Outpatient (CLI) | payer BC | LOC: OD 15:19 | PROVIDERS: ATTEND Nurse Practitioner Primary Care | DX: E03.9 Hypothyroidism, unspecified (principal); I10 Essential (primary) hypertension | CPT/HCPCS: 36415; 84443; 84479 ==